=== PATIENT | female | born 1965 | race African-American/Black ===

== ENCOUNTER 2017-09-02 06:08 | Day surgery (SDC) | payer OTHER ==
[2017-08-31 12:48] VITALS: BMI 37.0
[2017-09-02 06:36] VITALS: TEMP 98
[2017-09-02] MEDS ORDERED: LIDOCAINE HCL 2% (20ML MULTI-DOSE VIAL) NR ONE (07:05)
[2017-09-02] MEDS ORDERED: LIDOCAINE HCL/PF 2% SDV 5ML VIAL ONE (07:37)
[2017-09-02] MEDS ORDERED: PROPOFOL 20 ML ONE (07:37)
[2017-09-02] MEDS ORDERED: MIDAZOLAM HCL 2 MG/2 ML SINGLE DOSE VIAL ONE (07:37)
[2017-09-02] MEDS ORDERED: DEXAMETHASONE SOD PHOSPHATE 4 MG/1 ML VIAL ONE (07:57)
[2017-09-02] MEDS ORDERED: ONDANSETRON 4 MG/2 ML VIAL ONE (07:57)
[2017-09-02 13:34] VITALS: BP 124/84; PULSE 88
--- NOTE | 2017-09-04 17:45 | OP ---
DATE OF OPERATION: 09/02/2017 PREOPERATIVE DIAGNOSIS: Right thumb trigger finger. POSTOPERATIVE DIAGNOSIS: Right thumb trigger finger. OPERATIVE PROCEDURE: Right thumb trigger finger release. ANESTHESIA: Local with sedation. COMPLICATIONS: None. ESTIMATED BLOOD LOSS: Minimal. INDICATION FOR PROCEDURE: The patient is a 52-year-old female with the above finding, indicated for operative treatment. The risks, benefits and alternatives were discussed with the patient at length and proper informed consent was obtained. DESCRIPTION OF PROCEDURE: After proper identification of the patient and the correct operative site, the patient was brought to the operating room and placed supine on the operating table with all prominences well padded. Sedation was given by the anesthesiologist. Local anesthesia was given with 2% lidocaine. The right upper extremity was prepped and draped in the usual sterile fashion. A well-padded tourniquet was placed after sterile prep. An Esmarch bandage was used to exsanguinate the right upper extremity and the tourniquet was inflated to 250 mmHg. A transverse incision was made over the A1 breanna. The incision was taken sharply through the skin with blunt and sharp dissection through the subcutaneous tissues. The A1 breanna was identified and divided longitudinally. The patient was asked to flex and extend the thumb and no further triggering was noted. The wound was irrigated with saline and repaired with a 5-0 nylon suture. Sterile dressing was applied. The patient was reversed from anesthesia and brought to the recovery room in stable condition. She tolerated the procedure well. EVANGELINA AMAYA M.D. MIGUEL [id number]
== END 2017-09-02 09:45 | disposition home or self-care (01) ==
LOC: FASU 06:08
PROVIDERS: ATTEND Orthopaedic Surgery Hand Surgery
PROC: 0LN70ZZ Release Right Hand Tendon, Open Approach (ICD-10-PCS; principal; 2017-09-02 08:20)
DX: M65.311 Trigger thumb, right thumb (principal)

== ENCOUNTER 2023-08-11 04:39 | Day surgery (SDC) | payer OTHER ==
[2023-08-07 16:16] VITALS: BMI 35.4
[2023-08-11 08:50] VITALS: TEMP 98.4
[2023-08-11 09:13] VITALS: RESP 19
[2023-08-11 09:30] VITALS: BP 142/94; PULSE 88
== END 2023-08-11 09:35 | disposition home or self-care (01) ==
LOC: JASU-ENDO 04:39
PROVIDERS: ATTEND Internal Medicine Gastroenterology
PROC: 0DBN8ZX Excision of Sigmoid Colon, Via Natural or Artificial Opening Endoscopic, Diagnostic (ICD-10-PCS; principal; 2023-08-11 08:00)
DX: Z12.11 Encounter for screening for malignant neoplasm of colon (principal); K63.5 Polyp of colon; Z86.010 Personal history of colon polyps; I10 Essential (primary) hypertension; E11.9 Type 2 diabetes mellitus without complications; Z79.84 Long term (current) use of oral hypoglycemic drugs
CPT/HCPCS: 82962; 88305-TC